=== PATIENT | female | born 1980 | race Caucasian/White ===

== ENCOUNTER 2019-07-20 20:34 | Emergency (ER) | payer OTHER, SELFPAY ==
[2019-07-20 20:47] VITALS: BP 119/78; PULSE 120; RESP 18; TEMP 36.6; O2SAT 97
--- NOTE | 2019-07-20 20:59 | ED.WOUNDLAC ---
HPI - Wound/Laceration General Chief Complaint: Wound/Laceration Stated Complaint: left hand injury Source: patient Mode of arrival: ambulatory Limitations: no limitations History of Present Illness HPI narrative: this is a 39-year-old female that has a well-approximated laceration to the palmar surface of her left hand that occurred earlier today while she was using a knife to separate hamburger. There is some mild swelling and she is complaining of some mild numbness to palmar surface of her left hand currently no bleeding has good range of motion in her fingers. Onset (ago): hour(s) Extremity Location: Left: hand ( Palm well-approximated laceration) Place: home Patient tetanus UTD: No Context: accidental and sharp object use Associated symptoms: loss of feeling/numbness Related Data Home Medications Medication Instructions Recorded Confirmed medroxyprogesterone 150 mg IM [id number] 07/20/19 07/20/19 Allergies Allergy/AdvReac Type Severity Reaction Status Date / Time No Known Allergies Allergy Unverified 07/02/11 08:27 Review of Systems Review of Systems: All systems reviewed & are unremarkable except as noted in HPI and below PMFSH Past Medical History Medical History HLD (hyperlipidemia) Exam Const: General: no acute distress and alert Orientation/consciousness: patient oriented x3 HENMT: Head: normal to inspection Eyes: Conjunctivae: conjunctivae normal Neck: Neck: normal visual inspection Chest: Chest palpation & inspection: normal inspection of the chest Resp: Effort & Inspection: normal respiratory effort Cardio: Rate: regular rate Rhythm: regular rhythm GI: GI Palp: Yes Soft to palpation Skin: Wounds: wounds noted ( 2Cm well-approximated laceration to the left palm) Neuro: General: patient oriented x3 Extrem: General: normal to inspection Psych: Mental Status: mental status grossly normal Course Course Emergency Course: reassured patient that the Dermabond will will hold the laceration, and that her and her numbness and tingling related to inflammation to local nerves and superficial nerves. Vital Signs Vital signs: Vital Signs Temperature 36.6 C 07/20/19 20:47 Pulse Rate 120 H 07/20/19 20:47 Respiratory Rate 18 07/20/19 20:47 Blood Pressure 119/78 07/20/19 20:47 Pulse Oximetry 97 07/20/19 20:47 Temperature 36.6 C 07/20/19 20:47 Pulse Rate 120 H 07/20/19 20:47 Respiratory Rate 18 07/20/19 20:47 Blood Pressure 119/78 07/20/19 20:47 Pulse Oximetry 97 07/20/19 20:47 Procedures Laceration Laceration 1: Date: 07/20/19 Time: 21:03 Site: hand Side (If applicable): left Size (cm): 2 Description: linear Pre-repair: irrigated ====== Skin Level ====== Skin layer closed with: dermabond ====== Subcutaneous Layer ====== ====== Muscle Layer ====== ====== Tendon Layer ====== Critical Care Time Critical Care Time Critical Care Time: No Discharge Plan Discharge Clinical Impression: Laceration Patient Disposition: Home, Self-Care Condition: Stable Instructions: Antibiotic Form, Laceration (ED), Skin Adhesive Care (ED) Additional Instructions: Follow-up with primary care physician if symptoms persist or worsen. Prescriptions: No Action medroxyprogesterone 150 mg/mL suspension 150 mg IM [id number] RF: 0 Follow-up/Referrals: Sivan,YUNI Connors [Primary Care Provider] - Time of Disposition: 21:02
[2019-07-20] MEDS: TETANUS,DIPHTHERIA,AC PERTUSSIS ADULT 0.5 ML (ADACEL) IM (21:00)
== END 2019-07-20 21:11 | disposition home or self-care (01) ==
PROVIDERS: Emergency Provider Emergency Medicine; PCP Physician Assistant
DX: S61.412A Laceration without foreign body of left hand, initial encounter (principal); W26.0XXA Contact with knife, initial encounter
CPT/HCPCS: 12001; 90471; 90715; 99282

== ENCOUNTER 2019-09-13 12:51 | Outpatient (CLI) | payer OTHER, SELFPAY ==
--- NOTE | ~2019-09-13 | US_ITS ---
EXAMINATION: US pelvic complete w TV DATE: 09/13/2019 13:43 INDICATION: Left ovarian cyst TECHNIQUE: Multiple transabdominal and endovaginal sonographic images of the pelvis were obtained. COMPARISON: CT, 12/09/2018 FINDINGS: The uterus measures 8.6 x 2.9 x 2.7 cm. The endometrial complex measures 3 mm. The right ov junior measures 3.4 x 2.1 x 2.5 cm. The left ovary measures 6.6 x 6.0 x 4.2 cm and contains a 6.6 x 5.3 cm simple cyst which is not significantly changed since the comparison CT. There is no free fluid in the pelvis. IMPRESSION: 1. Left ovarian cyst measuring up to 6.6 cm. In a reproductive age female, annual sonographic follow- up is recommended. Reviewed, dictated and finalized at location B. IMPRESSION: 1. Left ovarian cyst measuring up to 6.6 cm. In a reproductive age female, jay gonsales sonographic follow-up is recommended.
== END 2019-09-13 12:52 | disposition home or self-care (01) ==
PROVIDERS: PCP Physician Assistant; Visit Provider Obstetrics & Gynecology
DX: N83.202 Unspecified ovarian cyst, left side (principal)
CPT/HCPCS: 76830; 76856

== ENCOUNTER 2020-04-13 16:57 | Outpatient (CLI) | payer OTHER, SELFPAY ==
[2020-04-13 18:27] LABS: SARS-CoV-2 Ag Negative (Negative)
== END 2020-04-13 16:58 | disposition home or self-care (01) ==
LOC: CHSLAB 17:02
PROVIDERS: PCP Physician Assistant; Visit Provider Physician Assistant
DX: Z20.822 Contact with and (suspected) exposure to COVID-19 (principal)
CPT/HCPCS: 87426; C9803

== ENCOUNTER 2020-11-04 13:43 | Outpatient (CLI) | payer OTHER, SELFPAY ==
[2020-11-04 15:00] LABS: SARS-CoV-2 RNA PCR Negative (Negative)
== END 2020-11-04 13:44 | disposition home or self-care (01) ==
LOC: CHSLAB 13:47
PROVIDERS: PCP Physician Assistant; Visit Provider Physician Assistant
DX: B34.9 Viral infection, unspecified (principal); Z20.822 Contact with and (suspected) exposure to COVID-19
CPT/HCPCS: C9803; U0003; U0005

== ENCOUNTER 2020-11-09 12:48 | Outpatient (CLI) | payer OTHER, SELFPAY ==
[2020-11-09 14:25] LABS: SARS-CoV-2 RNA PCR Negative (Negative)
== END 2020-11-09 12:49 | disposition home or self-care (01) ==
LOC: CHSLAB 12:52
PROVIDERS: PCP Physician Assistant; Visit Provider Family Medicine
DX: B34.9 Viral infection, unspecified (principal); Z20.822 Contact with and (suspected) exposure to COVID-19
CPT/HCPCS: C9803; U0003; U0005

== ENCOUNTER 2021-03-04 13:44 | Outpatient (CLI) | payer OTHER, SELFPAY ==
--- NOTE | ~2021-03-04 | US_ITS ---
EXAMINATION: US pelvic complete w TV EXAM DATE: 03/04/2021 14:36 INDICATION: Left ovarian cyst. TECHNIQUE: Pelvic transabdominal and transvaginal sonogram was performed. There are multiple graysca le and Doppler images available for interpretation. Comparison is made to prior examination from 09/12. FINDINGS: Uterus measures 8.3 x 2.8 x 4.6 cm, with suspicion of fundal fibroid measuring 1.7 cm. End ometrial stripe measures 4 mm, within normal limits. Small amount of cervical canal fluid. There is n o free pelvic fluid. Right adnexa: The ovary measures 2.7 x 2.1 x 1.9 cm and is morphologically normal. Ovarian vascular f low confirmed. Left adnexa: The ovary measures 5.6 x 6.3 x 3.7 cm, most of this volume taken up by an anechoic cysti c lesion measuring 4.8 x 6.1 x 3.4 cm (same lesion previously imaged with prior dimensions provided o n in 2020 at 6.6 x 5.3 x 3.2). Some scattered punctate echogenic foci within the fluid and possible t here is proteinaceous material. Ovarian vascular flow confirmed. IMPRESSION: Chronic left ovarian nonsimple cystic lesion, O-RADS category 2. Consider 2 year follow-u p. Reviewed, dictated and finalized at location B. ENGINEER IMPRESSION: Chronic left ovarian nonsimple cystic lesion, O-RADS category 2. Co nsider 2 year follow-up.
== END 2021-03-04 13:45 | disposition home or self-care (01) ==
PROVIDERS: PCP Physician Assistant; Visit Provider Obstetrics & Gynecology
DX: N83.202 Unspecified ovarian cyst, left side (principal)
CPT/HCPCS: 76830; 76856

== ENCOUNTER 2021-03-25 14:19 | Outpatient (CLI) | payer OTHER, SELFPAY ==
--- NOTE | ~2021-03-25 | MM_ITS ---
EXAMINATION: MM screening beth BI w forrest HISTORY: Baseline screening mammogram TECHNIQUE: Craniocaudal and mediolateral oblique 3-D tomosynthesis images were obtained and synthetic 2-D images were generated. CAD analysis was submitted and interpreted. COMPARISON: None, baseline BREAST PARENCHYMAL COMPOSITION: There are scattered areas of fibroglandular density. FINDINGS: RIGHT BREAST: There is no evidence of suspicious mass, calcification, or architectural distortion to suggest malignancy. LEFT BREAST: There is focal asymmetry in the anterior third of the upper outer quadrant of the breast . IMPRESSION: 1. Left breast focal asymmetry. 2. Additional mammographic views and possible breast ultrasound are recommended. BI-RADS Category 0: Incomplete: Needs additional imaging evaluation. Reviewed, dictated and finalized at location A. OPERER IMPRESSION: 1. Left breast focal asymmetry. 2. Additional mammographic views and possible breast ultrasound are recommended . BI-RADS Category 0: Incomplete: Needs additional imaging evaluation.
== END 2021-03-25 14:20 | disposition home or self-care (01) ==
LOC: ANHIMG 14:22
PROVIDERS: PCP Physician Assistant; Visit Provider Obstetrics & Gynecology Gynecology
DX: Z12.31 Encounter for screening mammogram for malignant neoplasm of breast (principal); R92.8 Other abnormal and inconclusive findings on diagnostic imaging of breast
CPT/HCPCS: 77063; 77067

== ENCOUNTER 2021-04-06 12:18 | Outpatient (CLI) | payer OTHER, SELFPAY ==
--- NOTE | ~2021-04-06 | MMUS_ITS ---
EXAMINATION: MM diagnostic beth LT w forrest, US breast LT limited HISTORY: Left breast focal asymmetry reported on March 25, 2021 screening mammogram TECHNIQUE: Additional 3-D tomosynthesis images of the left breast were performed and synthetic 2-D images were generated. CAD analysis was submitted and interpreted. High resolution targeted upper outer and lower-outer quadrant left breast ultrasound was performed. COMPARISON: 03/25/2019 bilateral screening mammogram FINDINGS: MAMMOGRAPHIC FINDINGS: No reproducible mass or architectural distortion is detected ULTRASOUND: No suspicious mass or shadowing is detected IMPRESSION: 1. No mammographic evidence of malignancy 2. Routine mammographic screening is recommended BI-RADS Category 1: Negative MEASURER GUEVARA
--- NOTE | ~2021-04-06 | MMUS_ITS ---
CORRECTED REPORT Report and charges moved from [id number] to [id number]. 04/14/2021 sef EXAMINATION: MM diagnostic beth LT w forrest, US breast LT limited HISTORY: Left breast focal asymmetry reported on March 25, 2021 screening mammogram TECHNIQUE: Additional 3-D tomosynthesis images of the left breast were performed and synthetic 2-D images were generated. CAD analysis was submitted and interpreted. High resolution targeted upper outer and lower-outer quadrant left breast ultrasound was performed. COMPARISON: 03/25/2019 bilateral screening mammogram FINDINGS: MAMMOGRAPHIC FINDINGS: No reproducible mass or architectural distortion is detected ULTRASOUND: No suspicious mass or shadowing is detected IMPRESSION: 1. No mammographic evidence of malignancy 2. Routine mammographic screening is recommended BI-RADS Category 1: Negative IDE TOOL DIE MAKER GUEVARA
== END 2021-04-06 12:19 | disposition home or self-care (01) ==
LOC: ANHIMG 12:19
PROVIDERS: PCP Physician Assistant; Visit Provider Obstetrics & Gynecology Gynecology
DX: R92.8 Other abnormal and inconclusive findings on diagnostic imaging of breast (principal)
CPT/HCPCS: 76642; 77061; 77065; G0279

== ENCOUNTER 2021-04-14 08:30 | Outpatient (CLI) | payer OTHER, SELFPAY ==
--- NOTE | 2021-04-14 11:00 | NEURO_ITS ---
Impression: # Complains of shooting pain from elbow down the arm in right upper extremity. # Right Carpal Tunnel Syndrome. # No ulnar neuropathy. # Right median compression above the carpal tunnel. # Question Pronator Teres Syndrome. Nerve Conduction Studies Anti Sensory Summary Table Stim Site NR Peak (ms) P-T Amp (?V) Site1 Site2 Delta-P (ms) Dist (cm) Johnathon (m/s) Right Median Anti Sensory (2-3nd Digit) Wrist 3.9 29.2 Wrist 2-3nd Digit 3.9 14.0 36 Wrist 4.0 7.9 Wrist 2-3nd Digit 3.9 14.0 36 Right Radial Anti Sensory (Base 1st Digit) Wrist 2.1 12.3 Wrist Base 1st Digit 2.1 0.0 Right Ulnar Anti Sensory (5th Digit) Wrist 2.4 75.7 Wrist 5th Digit 2.4 14.0 58 Motor Summary Table Stim Site NR Onset (ms) O-P Amp (mV) Site1 Site2 Delta-0 (ms) Dist (cm) Johnathon (m/s) Right Median Motor (Abd Poll Brev) Wrist 3.5 3.2 Elbow Wrist 7.2 27.0 38 Elbow 10.7 1.4 Right Ulnar Motor (Abd Dig Minimi) Wrist 2.7 3.6 A Elbow Wrist 5.0 30.0 60 A Elbow 7.7 2.7 F Wave Studies NR F-Lat (ms) L-R F-Lat (ms) Right Median (Mrkrs) (Abd Poll Brev) 30.41 Right Ulnar (Mrkrs) (Abd Dig Min) 27.78 EMG Side Muscle Nerve Root Ins Act Fibs Amp Dur Recrt Comment Right 1stDorInt Ulnar C8-T1 Nml Nml Nml Nml Nml Right Ext Indicis Radial (Post Int) C7-8 Nml Nml Nml Nml Nml Right Ext Digitorum Radial (Post Int) C7-8 Nml Nml Nml Nml Nml Right BrachioRad Radial C5-6 Nml Nml Nml Nml Nml Right PronatorTeres Median C6-7 Nml Nml Nml Nml Nml Right Abd Poll Brev Median C8-T1 Nml Nml Nml Nml Nml Right ABD Dig Min Ulnar C8-T1 Nml Nml Nml Nml Nml Right Abd Poll Long Radial (Post Int) C7-8 Nml Nml Nml Nml Nml MTDD
== END 2021-04-14 08:31 | disposition home or self-care (01) ==
PROVIDERS: PCP Physician Assistant; Visit Provider Physician Assistant
DX: G56.01 Carpal tunnel syndrome, right upper limb (principal)
CPT/HCPCS: 95886; 95909

== ENCOUNTER 2022-06-10 14:36 | Outpatient (CLI) | payer OTHER, SELFPAY ==
--- NOTE | ~2022-06-10 | MM_ITS ---
EXAMINATION: MM screening beth BI w forrset HISTORY: Screening mammogram TECHNIQUE: Craniocaudal and mediolateral oblique 3-D tomosynthesis images were obtained and synthetic 2-D images were generated. CAD analysis was submitted and interpreted. COMPARISON: No prior mammogram is available for comparison at this institution. BREAST PARENCHYMAL COMPOSITION: There are scattered areas of fibroglandular density. FINDINGS: There is no evidence of suspicious mass, calcification, or architectural distortion to sugg est malignancy in either breast. There has been no suspicious interval change. IMPRESSION: 1. No mammographic evidence of malignancy. 2. Recommend routine screening mammography in one year. BI-RADS Category 1: Negative Reviewed, dictated and finalized at location A.
--- NOTE | ~2022-06-10 | DEXA_ITS ---
Bone Density Report Name: TALHA MERRILL Age: 41 Sex: Female Ethnicity: White Date of : 1980 Indication: height loss; Referring Provider: LOTTIE PABON Study: Bone densitometry was performed. Exam Date: June 10, 2022 Accession number: [id number] Bone Density: Region BMD T-score Z-score Classification AP Spine(L1-L4) 1.049 0.0 0.3 Normal Femoral Neck (Left) 0.797 -0.5 -0.1 Normal Total Hip (Left) 0.959 0.1 0.3 Normal Femoral Neck (Right) 0.888 0.4 0.7 Normal Total Hip (Right) 0.970 0.2 0.4 Normal Total Hip Mean 0.964 0.2 0.4 Normal World Health Organization criteria for BMD impression classify patients as: Normal (T-score at or above -1.0), Osteopenia (T-score between -1.0 and -2.5), or Osteoporosis (T-score at or below -2.5). 10-year Fracture Risk: FRAX not reported because: All T-scores for Spine Total, Hip Total, Femoral Neck at or above -1.0 Clinical Information Provided by Patient: Smokes Patient maximum height was 64 Drinks caffeinated beverages Onset of menses at age 12 Number of children 2 Missed period for more than 6 months in a row Impression: The patient has normal bone mass. The patient has risk factors, including: smoking. Discussion: BONE DENSITY IS ABOVE THE MINIMUM DESIRABLE LEVEL AT ALL SKELETAL SITES TESTED. This patient?s bone mineral density is above the minimum desirable level (T-score -1.0 or better) at all sites measured. The patient should follow a healthful lifestyle (good nutrition with adequate calcium and vitamin D, and appropriate weight-bearing exercise). Follow-Up: Consider repeating this study in 5 years or sooner if there is some new clinical indication. Reported by: [facility] on 06/10/2022 3:13:00 PM. Reviewed, dictated and finalized at location [place] [facility]
== END 2022-06-10 14:37 | disposition home or self-care (01) ==
PROVIDERS: PCP Physician Assistant; Visit Provider Obstetrics & Gynecology Gynecology
DX: Z12.31 Encounter for screening mammogram for malignant neoplasm of breast (principal); Z13.820 Encounter for screening for osteoporosis
CPT/HCPCS: 77063; 77067; 77080

== ENCOUNTER 2022-08-03 18:51 | Emergency (ER) | payer OTHER, SELFPAY ==
[2022-08-03] VITALS (13 sets, daily range): BP systolic 128–138; BP diastolic 76–89; PULSE 90–102; RESP 12–21; TEMP 36.6; O2SAT 95–100
--- NOTE | ~2022-08-03 | XR_ITS ---
EXAMINATION: XR chest 2V Exam Date/Time: 08/03/2022 19:00 CDT HISTORY: cough Comparison: None. RESULT: Lines, tubes, and devices: None. Lungs and pleura: Mild reticulonodular opacities and cuffing. Cardiomediastinal silhouette: Stable. Other: No acute osseous or upper abdominal finding. IMPRESSION: Pulmonary opacities may represent bronchiolitis, as can be seen with atypical infection, asthma, aspi ration, and small airways disease. Reviewed, dictated and finalized at location K. IMPRESSION: Pulmonary opacities may represent bronchiolitis, as can be seen with atypical i nfection, asthma, aspiration, and small airways disease.
--- NOTE | 2022-08-03 18:52 | ECG_ITS ---
Measurements Intervals [place] Rate: 87 P: 51 GA: 142 QRS: 23 QRSD: 91 T: 31 QT: 341 QTc: 412 Interpretive Statements SINUS RHYTHM NO PREVIOUS ECG AVAILABLE FOR COMPARISON Electronically Signed On 08-03-2022 20:03:35 CDT by Wendy Bauer M.D.
--- NOTE | 2022-08-03 18:54 | ED.CHESTPAIN ---
HPI - Chest Pain General Chief Complaint: Shortness of Breath/Dyspnea Stated Complaint: SOB Time Seen by Provider: 08/03/22 18:52 History of Present Illness HPI narrative: Pt did a lot of yard work 5 days ago and started to develop nasal congestion and cough about 4 days ago. Pt developed tightness in upper chest this morning which has stayed constantly since this morning and seems to be more tight when she coughs. Pt has felt warm but has not had a measured fever. Pt has not had episodes like this in past. Related Data Home Medications Medication Instructions Recorded Confirmed medroxyprogesterone 150 mg/mL 150 mg IM [id number] 07/20/19 08/03/22 intramuscular suspension simvastatin 40 mg tablet 40 mg PO DAILY 08/03/22 08/03/22 Allergies Allergy/AdvReac Type Severity Reaction Status Date / Time No Known Allergies Allergy Verified 08/03/22 19:01 Review of Systems Review of Systems: All systems reviewed & are unremarkable except as noted in HPI and below PMFSH Past Medical History Medical History (Updated 07/21/19 @ 00:00 by Estefany Cuellar) HLD (hyperlipidemia) Exam Const: General: healthy appearing Nutritional Appearance: well nourished Orientation/consciousness: patient oriented x3 Limitations: no limitations Neck: Neck: normal visual inspection Chest: Chest palpation & inspection: normal inspection of the chest Resp: Effort & Inspection: normal respiratory effort Auscultation: clear to auscultation bilaterally Cardio: Rate: regular rate Rhythm: regular rhythm GI: GI Palp: Yes Soft to palpation Auscultation: normal bowel sounds Skin: General skin exam: normal color Rashes: no rashes Neuro: General: patient oriented x3, moves all extremities, no focal motor deficits and CN's II-XI intact bilaterally Cranial nerves: Yes Nystagmus not present Speech: normal speech Extrem: General: normal to inspection and no clubbing, cyanosis or edema Psych: Mental Status: mental status grossly normal Affect: normal affect Attitude: cooperative Course Course Emergency Course: H 0, E 0, A 0, R 1,T Vital Signs Vital signs: Vital Signs Temperature 98 F 08/03/22 18:56 Pulse Rate 96 08/03/22 18:56 Respiratory Rate 12 08/03/22 18:56 Blood Pressure 131/85 08/03/22 18:56 Pulse Oximetry 97 08/03/22 18:56 Oxygen Delivery Room Air 08/03/22 18:56 Temperature 98 F 08/03/22 18:56 Pulse Rate 96 08/03/22 18:56 Respiratory Rate 12 08/03/22 18:56 Blood Pressure 131/85 08/03/22 18:56 Pulse Oximetry 97 08/03/22 18:56 Oxygen Delivery Room Air 08/03/22 18:56 MDM - Chest Pain Differential Diagnosis Differential diagnosis: Likely pneumothorax, unstable angina pectoris, atypical chest pain, st elevation myocardial infarction, costochondritis, chest pain and other (bronchitis, pneumonia, allergies, viral uri among others) ECG Data EKG #1: Interpretation: NSR rate [address] or t wave changes normal ekg Discharge Plan Discharge Prescriptions: No Action medroxyprogesterone 150 mg/mL suspension 150 mg IM [id number] simvastatin 40 mg tablet 40 mg PO DAILY Follow-up/Referrals: Sivan,YUNI Cononrs [Primary Care Provider] -
[2022-08-03 19:07] LABS: Basophils Absolute Auto 0.04 K/mm3 (0.00-0.10); Basophils Percent Auto 0.4 % (0.0-1.0); Eosinophils Percent Auto 0.9 % (1.0-6.0); Hematocrit 44.1 % (35.0-49.0); Hemoglobin 14.9 g/dL (12.0-15.0); Immature Granulocyte Absolute 0.04 K/mm3 (0.00-0.00); Immature Granulocyte Percent A 0.4 % (0.0-0.0); Lymphocytes Absolute Auto 2.28 K/mm3 (1.10-4.50); Lymphocytes Percent Auto 21.6 % (18.0-42.0); Mean Corpuscular HGB Conc 33.8 g/dL (32.0-36.0); Mean Corpuscular Hemoglobin 32.1 pg (27.0-31.0); Mean Platelet Volume 9.4 fl (9.2-11.8); Monocytes Absolute Auto 0.97 K/mm3 (0.10-0.90); Monocytes Percent Auto 9.2 % (2.0-11.0); Neutrophils Absolute Auto 7.1 K/mm3 (1.7-7.2); Neutrophils Percent Auto 67.5 % (50.0-70.0); Platelet Count Result 301 K/mm3 (150-420); Red Blood Count 4.64 M/mm3 (4.20-5.40); Red Cell Distribution Width 12.9 % (11.6-14.4); White Blood Count 10.6 K/mm3 (4.8-10.8)
[2022-08-03] MEDS: IPRATROPIUM 0.5 MG/ALBUTEROL SULFATE 2.5 MG AMPUL.NEB 3 ML INHALATION (19:13)
[2022-08-03 19:21] LABS: Partial Thromboplastin Time 26.8 SEC (23.90-30.70); Prothrombin Time 10.7 Seconds (9.50-12.10)
[2022-08-03] MEDS: ASPIRIN 81 MG CHEWABLE TABLET 324 MG PO (19:27)
[2022-08-03] MEDS: ONDANSETRON INJ 4 MG/2 ML VIAL IV PUSH (19:28)
[2022-08-03 19:29] LABS: Alanine Aminotransferase 23 U/L (14-59); Albumin Level 3.5 g/dL (3.4-5.0); Alkaline Phosphatase 68 U/L (46-116); Anion Gap 10 mmol/L (8-16); Aspartate Amino Transferase 16 U/L (15-37); Bilirubin,Total 0.3 mg/dL (0.00-1.00); Blood Urea Nitrogen 15 mg/dL (7-18); Calcium 8.4 mg/dL (8.5-10.1); Carbon Dioxide 25 mmol/L (21-32); Chloride 104 mmol/L (98-108); Estimated CRCL calculation 95 ml/min; Estimated Glomerular Filt Rate > 60; Glucose 94 mg/dL (70-99); NT Pro B Type Natriuretic Pept 206 pg/mL (0-125); Osmolality Calculated 288 mOsm/kg (285-295); Potassium 3.9 mmol/L (3.5-5.1); Sodium 139 mmol/L (136-145); Total Protein 6.9 g/dL (6.4-8.2)
[2022-08-03] MEDS: MORPHINE SULFATE (*CRX) 4 MG/ML INJ IV PUSH (19:30)
== END 2022-08-03 20:13 | disposition home or self-care (01) ==
LOC: CHSED 19:43
PROVIDERS: Emergency Provider Emergency Medicine; PCP Physician Assistant
DX: J20.9 Acute bronchitis, unspecified (principal); E78.5 Hyperlipidemia, unspecified
CPT/HCPCS: 36415; 71046; 80053; 83880; 84484; 85025; 85610; 85730; 93005; 94640; 96374; 96375; 99284; A9270; J2270; J2405

== ENCOUNTER 2023-11-08 15:56 | Outpatient (CLI) | payer OTHER, SELFPAY ==
--- NOTE | ~2023-11-08 | MM_ITS ---
EXAMINATION: MM screening beth BI w forrest HISTORY: Screening TECHNIQUE: Craniocaudal and mediolateral oblique 3-D tomosynthesis images were obtained and synthetic 2-D images were generated. CAD analysis was submitted and interpreted. COMPARISON: Comparison to multiple prior studies sequentially, with oldest reviewed study dated 03/25. BREAST PARENCHYMAL COMPOSITION: Not dense: There are scattered areas of fibroglandular density. FINDINGS: There is no evidence of suspicious mass, calcification, or architectural distortion to sugg est malignancy in either breast. There has been no suspicious interval change. IMPRESSION: 1. No mammographic evidence of malignancy. 2. Recommend routine screening mammography in one year. BI-RADS Category 1: Negative Reviewed, dictated and finalized at location B.
== END 2023-11-08 15:57 | disposition home or self-care (01) ==
LOC: ANHIMG 15:58
PROVIDERS: PCP Physician Assistant; Visit Provider Nurse Practitioner
DX: Z12.31 Encounter for screening mammogram for malignant neoplasm of breast (principal)
CPT/HCPCS: 77063; 77067

== ENCOUNTER 2024-06-19 11:00 | Outpatient (CLI) | payer OTHER, MEDICAID, SELFPAY ==
--- NOTE | ~2024-06-19 | US_ITS ---
Pelvic ultrasound. Clinical History: Left ovarian cyst Technique: Realtime transabdominal and transvaginal scanning of the pelvis was performed. Color flow Doppler and Doppler spectral analysis were performed. Findings: The uterus is anteverted. The endometrial stripe has a thickness of 6 mm. No focal mass is identified. The right ovary is not visualized. No significant right ovarian or adnexal mass is seen. The left ovary measures 5.7 x 8.0 x 5.2 cm. Simple left ovarian cyst measures 7.0 x 4.7 cm. There is no evidence of free fluid in the cul de sac. Impression: 7.0 cm simple left ovarian cyst. Reviewed, dictated and finalized at location M. Impression: 7.0 cm simple left ovarian cyst.
== END 2024-06-19 11:01 | disposition home or self-care (01) ==
LOC: MICIMG 11:01
PROVIDERS: PCP Physician Assistant; Visit Provider Nurse Practitioner
DX: N83.202 Unspecified ovarian cyst, left side (principal)
CPT/HCPCS: 76830

== ENCOUNTER 2024-07-19 16:22 | Outpatient (CLI) | payer OTHER, MEDICAID, SELFPAY ==
--- OUTSIDE RECORDS SUMMARY | 2024-07-19 16:27 | XMS_ITS | Clinical Summary ---
Author Organization [facility] Address [address] [place] [id number] Phone Care Team Providers Care Gasket Maker Name Role Phone Unavailable Primary Care Provider Unavailabl e Allergies No known active allergies Medications VITS W-CA,FE,FA,<1MG , ( VITAMIN ORAL) Take 1 Tab by mouth daily. 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 Gender Identity Not on file Sexual Orientation Not on file Occupation Industry Job Start Date Job End Date Not on file Not on file Not on file Not on file Plan of Treatment Health Maintenance Due Date Last Done Comments DTAP/TDAP/TD VACCINES (1 - Tdap) 06/25/1999 HEPATITIS B VACCINES (1 of 3 - 19+ 3-dose series) 06/25/1999 HPV/Cotest (21-29) 2001 CERVICAL CANCER SCREENING 2010 HPV/Cotest (30-65) 2010 PAP SMEAR 2010 BREAST CANCER SCREENING 2020 INFLUENZA VACCINE (#1) 2023 RSV VACCINE (60+ or ) (1 - 1-dose 75+ series) 06/25/2055 HPV VACCINES Aged Out No longer eligi ble based on patient's age to complete this topic Insurance [id number] [place] [id number] [facility] [id number]
--- OUTSIDE RECORDS SUMMARY | 2024-07-19 16:28 | XMS_ITS | Continuity of Care Document ---
Author Organization [facility] Address [address] [place] [address] Phone Care Team Providers Care Application Support Intern Name Role Phone Unavailable Unavailable Unavailable Advance Directives Directive Yes / No Effective Date File Name No Information Encounters Encounter Description Practice Location Reason(s) For Visit Diagnoses Date Provider Providers Copied on Encounter [facility], [address] [facility], [place], [place], [id number], tel:[phone] [facility] No Information No Information Referring Provider: KULWINDER Thomas, [address], [place], [address]. tel:[phone] Family History Family Member Type Diagnosis Age At Onset No Information Payers Payer name Insurance type Covered libertarian ID Authoriza tion(s) [facility] [id number] CI [id number] Social History Type Description Quantity Date Captured Comments Sex Female Smoking Status No Information Chief Complaint And Reason For Visit No Information History Of Present Illness Encounter Date Complaint History Of Prese nt Illness No Information Instructions Date Instruction Additional Infor mation No Information Assessments Type Assessment Date No Information
--- OUTSIDE RECORDS SUMMARY | 2024-07-19 16:28 | XMS_ITS | Continuity of Care Document ---
Author Organization [facility] Address [address] [place] [address] Care Team Providers Care Respiratory Therapist Name Role Phone WHITNEY FINNEGAN Primary Care Provider Assessment No assessment recorded. Plan of Treatment Reminders Order Date Submit Date Provider Last Modified By Organization Details Last Modified Time Details Appointments ANY 15 2024 03:45P M Whitney Finnegan PA-C Not available Not available Not available Lab CMP, serum or plasma 2024 025 [facility], [address] [place] [address], [address], 07/19/2024 17:00:19 CBC 2024 025 [facility], [address] [place] [address] 2, [place], [address], 07/19/2024 17:00:19 amylase + lipase, serum 2024 025 [facility], [address] [place] [address] 2, [place], [address], 07/19/2024 17:00:19 Referral None recorded. Procedures None recorded. Surgeries None recorded. Imaging US, abdomen, complete [address] [facility], [address] [place], [address], 07/19/2024 17:00:59 Medication Orders None recorded. Patient TargetsNo targets recorded. Patient Instructions Encounter Date Encounter Id Patient Instructions Last Modified By Organization Details Last Modified Time 07/19/2024 [id number] A healthy lifestyle: care instructions [email or web address] Not available 07/19/2024 17:00:48 ultrasound, abdominal: patient instructions [email or web address] Not available 07/19/2024 17:00:17 Reason for Referral None Reported. Results Created Date Observation Date Name Description Value Unit Range Abnormal Flag Note LastModifiedBy Organization Detail LastModifiedTime 06/20/1906/19/2024 US, pelvi s No observ ation record ed. [email or web address] [address], [place], [address], 06/19/2024 14:26:27 Result Notes None recorded. Problems Name Problem SNOMED Code Status Onset Date Resolution Date Notes Provider Name and Address Organization Details Recorded Time Cyst of ovary 70161804 Active 2018 MARILY [place], [place] - [place] 9 11:54:10 Diverticulitis 191861879 Active 2018 MARILY [place], [place] 9 11:54:16 History of hypertension 796114157 Active MARILY [place], [place] - [facility] 6 15:37:22 Folliculitis 21594766 Active MARILY [place], [place] - [facility] 6 15:37:22 Upper respiratory infection 37950987 Active Whitney Finnegan PA-C Attn: Santana g,[address] [facility], [place], [address], [facility] - [facility] 6 15:48:58 Problem Notes None recorded. Procedures Surgical History Date Name Laterality Status Provider Name and Address Organization Details Recorded Time 0 Date of Last Pap Smear completed Fatimah Delvalle [place] 04/13/2020 17:00:21 9 partial resection of colon completed Charlotte Lu [place] 10/11/2021 11:52:44 Caesarean Section completed Aida Schumacher [place] 04/02/2015 13:51:17 Imaging Results None recorded. Procedure Notes None recorded. Medical Equipment None Reported. Allergies No known drug allergies Medications Name Sig Start Date Stop Date Status Note LastModified by Organization Details LastModified Time cyclobenza alberto 10 mg tablet 10/14 completed Not Available Not Available Not Available amoxicilli n 500 mg capsule TAKE 1 CAPSULE BY MOUTH 3 TIMES A DAY FOR 10 DAYS 02/25 completed Not Available Not Available Not Available buspirone 5 mg tablet Take 1 tablet every day by oral route for 30 days. 02/25 completed Not Available Not Available Not Available ibuprofen 800 mg tablet Take 1 tablet 3 times a day by oral route as needed for 30 days. 02/25 completed Not Available Not Available Not Available fluconazol e 150 mg tablet 10/14 completed Not Available Not Available Not Available benzonatat e 200 mg capsule Take 1 capsule 3 times a day by oral route as needed for 10 days. 06/04 completed Not Available Not Available Not Available hydrocodon e 5 mg-acetami nophen 325 mg tablet 02/25 completed Not Available Not Available Not Available metronidaz ole 0.75 % (37.5 mg/5 gram) vaginal gel 10/14 completed Not Available Not Available Not Available ondansetro n HCl 4 mg tablet 02/25 completed Not Available Not Available Not Available metronidaz ole 500 mg tablet 02/19 completed Not Available Not Available Not Available ciprofloxa camron 500 mg tablet Take 1 tablet every 12 hours by oral route for 10 days. 02/19 completed Not Available Not Available Not Available sulfametho xazole 800 mg-trimeth oprim 160 mg tablet Take 1 tablet every 12 hours by oral route for 10 days. 10/10 completed Not Available Not Available Not Available tramadol 50 mg tablet 02/25 completed Not Available Not Available Not Available simvastati n 40 mg tablet TAKE 1 TABLET BY MOUTH EVERY DAY active Not Available Not Available No t Available ketorolac 10 mg tablet 06/27 completed Not Available Not Available Not Available amoxicilli n 875 mg tablet TAKE 1 TABLET BY MOUTH EVERY 12 HOURS FOR 10 DAYS 06/04 completed Not Available Not Available Not Available cephalexin 500 mg capsule 10/10 completed Not Available Not Available Not Available simvastati n 20 mg tablet TAKE 1 TABLET BY MOUTH EVERY DAY 03/16 completed not taking Not Available Not Available Not Available docusate sodium 100 mg capsule 02/25 completed Not Available Not Available Not Available gabapentin 300 mg capsule TAKE 1 CAPSULE BY MOUTH THREE TIMES A DAY 10/11 completed not taking Not Available Not Available Not Available codeine 10 mg-guaifen esin 100 mg/5 mL oral liquid Take 10 mL every 4 hours by oral route as needed for 10 days. 07/12 completed Nauseat ed; sick Not Available Not Available Not Available methylpred nisolone 4 mg tablets in a dose pack Take 1 dose pk by oral route as directed . 06/04 completed Not Available Not Available Not Available ondansetro n 4 mg disintegra ting tablet 02/25 completed Not Available Not Available Not Available medroxypro gesterone 150 mg/mL intramuscu lar suspension INJECT 1ML INTO THE MUSCLE EVERY 12 WEEKS active Not Available Not Available No t Available naproxen 500 mg tablet TAKE 1 TABLET BY MOUTH TWICE A DAY active Not Available Not Available No t Available amoxicilli n 875 mg-potassi um clavulanat e 125 mg tablet 02/19 completed Not Available Not Available Not Available azithromyc in 500 mg tablet Take 1 tablet every day by oral route for 3 days. 06/04 completed Not Available Not Available Not Available medroxypro gesterone 150 mg/mL intramuscu lar syringe INJECT INTRAMUS CULARLY EVERY 12 WEEKS 06/04 completed Not Available Not Available Not Available Falmina (28) 0.1 mg-20 mcg tablet 10/10 completed Not Available Not Available Not Available Vitals Date Recorded Body height Body mass index (BMI) Body weight Oxygen saturation Oxygen saturation in Arterial blood by Pulse oximetry Systolic blood pressure Diastolic blood pressure Provider Name and Address Organization Details Last Updated DateTime 5 162.56 cm 41.4 kg/m2 441011. 76 g 96 % 96 % 126 mm[Hg] 82 mm[Hg] Belinda Gillette [place] - [facility] 5 16:51:48 Social History Question Answer Notes LastModified by Organizat ion Details LastModified Time Tobacco Smoking Status Current Every Day Smoker Aida Schumacher MA null, [place] 04/02/2015 13:51:16 Do You Have An Advance Directive? No Information n ot available 02/25/2021 Are You Blind Or Do You Have Difficulty Seeing? No Information n ot available 02/25/2021 What Is Your Level Of Caffeine Consumption? Moderate Information not available 04/13/2020 In The 14 Days Before Symptom Onset, Have You Had Close Contact With A Laboratory-confirm ed COVID-19 While That Case Was Ill? No Information n ot available 04/13/2020 In The 14 Days Before Symptom Onset, Have You Had Close Contact With A Person Who Is Under Investigation For COVID-19 While That Person Was Ill? No Information not available 04/13/2020 Have You Been To An Area Known To Be High Risk For COVID-19? No Information not available 04/13/2020 Are You Deaf Or Do You Have Serious Difficulty Hearing? No Information not available 02/25/2021 What Type Of Diet Are You Following? REGULAR Information n ot available 04/13/2020 Are There Any Guns Present In Your Home? Yes Information not available 02/25/2021 What Was The Date Of Your Most Recent Tobacco Screening? 07/19/2024 Information not available 07/19/2024 How Many Children Do You Have? 2 Information not available 02/25/2021 Do You Use Protection During Sex? No Information not available 02/25/2021 What Is Your Relationship Status? Information not available 04/13/2020 Do You Use Your Seat Belt Or Car Seat Routinely? Yes Information not available 02/25/2021 Are You Sexually Active? Yes Information not available 02/25/2021 Do You Have Smoke And Carbon Monoxide Detectors In Your Home? Yes Information not available 02/25/2021 Are You Passively Exposed To Smoke? Yes Information no t available 02/25/2021 How Much Tobacco Do You Smoke? 0.5 PPD [email or web address] Information not available 04/02/2015 Do You Use Sunscreen Routinely? Yes Information not available 02/25/2021 Has Tobacco Cessation Counseling Been Provided? Yes [email or web address] Information not available 06/27/2018 On What Date Was Tobacco Cessation Counseling Provided? 07/19/2024 Information not available 07/19/2024 How Many Years Have You Smoked Tobacco? 19 [email or web address] Information not available 03/21/2018 Sex: Female Functional Status Question Answer Note LastModified by Organizat ion Details LastModified Time Do you use any illicit or recreational drugs? Yes Information not available 02/25/2021 Do you or have you ever used any other forms of tobacco or nicotine? No Information not available 02/25/2021 What is your level of alcohol consumption? Occasional Information not available 10/11/2021 Are you currently employed? Yes Information not available 04/13/2020 Are you able to care for yourself? 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 None Information not available 02/25/2021 Mental Status Question Answer Note LastModified by Organization D etails LastModified Time Do you feel stressed (tense, restless, nervous, or anxious, or unable to sleep at night)? [id number] Information not available 10/11/2021 Family History Relationship Description Onset Age of this Age Resolved Age Notes LastModified by Organization Details LastModified Time Mother History of hypertension [email or web address] Not available 0 10/15/2015 15:37:23 Medical History Condition Response Coronary Artery Disease N Other N Atrial Fibrillation N High Blood Pressure N Thyroid Problems N Kidney or Bladder Problems N Depression N COPD N Blood Clots N GI Problems N Skin Problems N Eating Disorder N Anemia N Heart Attack (SD) N Diabetes N Anxiety Disorder N Muscle, Joint, or Bone Problems N Seizures/Epilepsy N Acid Reflux (GERD) N Cancer N Stroke N Allergies N Asthma N ADHD N Substance Abuse N High Cholesterol Y Hepatitis N Liver Disease N Schizophrenia N Headaches N Osteoporosis N Heart Failure N Gynecological History Statement/Question Response Date of Last Pap Smear 11/14/2019 Date of LMP Obstetrics History GPAL:G 0 P 0 0 0 0 Immunizations Vaccine Type Date Status Note Provider Nam e and Address Organization Details Recorded Time Hep B, adult 6 completed Not Available [facility] 03/[facility]2019 02:30:47 Hep B, adult 6 completed Not [facility] 03/02/2019 02:30:47 influenza, unspecified formulation 9 completed MARILY [place], [place] 01/01/2019 14:06:27 Hep B, adult 6 completed Not Available [facility] 03/02/2019 02:30:47 Tdap 0 completed Not Available [facility] 07/19/2024 16:44:32 Influenza, split virus, quadrivalent, preservative 8 completed Not Available [facility] 03/02/2019 02:49:14 Past Encounters Encounter ID Performer Location Encounter Start Date Encounter Closed Date Diagnosis/Indication Diagnosis SNOMED-CT Code Diagnosis ICD10 Code Diagnosis Note [id number] Naseem Barlow [facility] [address] [place] [address] 07/19/2024 16:43:50 07/19/2024 17:01:44 Right upper quadrant pain 442679976 R10.11 Obese class III 53058146 5 E66.813 Health Concerns Section Related Observation LastModified by Organization Detai ls LastModified Time None Recorded Concern Status LastModified by Organization Details LastModified Time None Recorded Payers Encounter Date Sequence Insurance Name Policy Number Policy Lawler Covered Member ID Lawler Member ID Guarantor Name 07/19/2024 1 [facility] [employer]LE[employer]ST[employer] - OPEN ACCESS III (PPO) [id number] Job Do [id number] Job Do Notes Date Note Type Note Provider Name and Address Organization Details Recorded Time 07/19/2024 text/html hx of diverticulitis...n ow having pain started in back now wrapping around to rt side..may be some correlation with food.. Whitney Finnegan PA-C Attn: [employer] [place], [address], [facility] 07/19/2024 17:01:41 OBGyn Episode No OBEpisode recorded.
--- OUTSIDE RECORDS SUMMARY | 2024-07-19 16:28 | XMS_ITS | Data Portability ---
Author Organization [facility] Address [address] [place] [address] Care Team Providers Care Photographic Technician Name Role Phone WHITNEY FINNEGAN Primary Care Provider [phone] Assessment No assessment recorded. Plan of Treatment Reminders Order Date Submit Date Provider Last Modified By Organization Details Last Modified Time Details Appointments ANY 15 2024 03:45P M Whitney Finnegan PA-C Not available Not available Not available Lab CMP, serum or plasma 2024 025 J[facility], [address] [facility], [facility], [place], [address], 07/19/2024 17:00:19 CBC 2024 025 J[facility]DEN [facility], [address] [facility], [facility], [place], [address], 07/19/2024 17:00:19 amylase + lipase, serum 2024 025 JAYDEN [facility], [address] [facility], [facility], [place], [address], 07/19/2024 17:00:19 rapid SARS CoV 2 Ag, QL IA, respirat ory specimen 2021 022 JAYDEN In-Office Order, Internal Use Only DO Not Attach Compendium DO Not Attach Compendium, Do Not Delete/merge, [id number] 01/25/2022 12:27:53 lipid panel, serum 2021 022 [email or web address] [facility], [address] [place], [place] [address]jam[address], [address], [place], [address], 02/26/2021 09:42:04 CMP, serum or plasma 2021 [email or web address] [facility], [address], [address], [place], [address], 02/26/2021 09:42:05 CBC 2021 JAYDEN [facility], [address], [address], [place], [address], 03/16/2021 11:09:28 TSH + free T4, serum 2021 [email or web address] [facility], [address], [address], [place], [address], 02/26/2021 09:42:07 HbA1c (hemoglo bin A1c), blood 2021 022 [facility], [address], [address], [place], [address], 02/26/2021 09:42:08 Referral physical therapis t referral 2024 025 [facility], [address] [place] [address], [place], [address], 07/02/2024 12:44:53 dermatol ogist referral 2021 022 [email or web address] Not available 10/28/2021 11:29:11 general surgeon referral 2021 bimal Douglass MD, [address] [facility] , [facility] [address], [place], [address], 06/17/2021 12:31:09 Procedures nerve conducti on study/EM G, upper extremit y (PROC) - right hand 2021 [facility], [address], [place], [address], 04/15/2021 15:43:29 Surgeries None recorded . Imaging US, abdomen, complete 2024 025 [facility], [address] [place], [address], 07/19/2024 17:00:59 Medication Orders naproxen 500 mg tablet 2024 025 [facility]/Pharmacy #[id number], [address] [place], [address], 06/04/2024 14:38:33 Medrol (Al) 4 mg tablets in a dose pack 2021 [email or web address] [facility]/Pharmacy #[id number], [address] [place], [address], 06/04/2024 14:21:21 Patient TargetsNo targets recorded. Patient Instructions Encounter Date Encounter Id Patient Instructions Last Modified By Organization Details Last Modified Time 02/25/2021 [id number] carpal tunnel syndrome: care instructions anney Not available 02/25/2021 14:41:44 carpal tunnel syndrome: exercises anney Not available 02/25/2021 14:41:44 10/11/2021 [id number] body mass index: care instructions anney Not available 10/11/2021 12:15:41 learning about healthy weight anney Not available 10/11/2021 12:15:41 06/04/2024 [id number] body mass index: care instructions anney Not available 06/04/2024 14:38:30 learning about healthy weight anney Not available 06/04/2024 14:38:30 07/19/2024 [id number] A healthy lifestyle: care instructions anney Not available 07/19/2024 17:00:48 ultrasound, abdominal: patient instructions anney Not available 07/19/2024 17:00:17 Reason for Referral General Surgeon Referral for Diverticulitis of colon Referring Physician: Whitney Finnegan, Family Medicine, Encounter Date: 02/25/2021 [employer] Referral for D ysplastic nevus of skin Referring Physician: Whitney Finnegan [facility], Encounter Date: 10/11/2021 Physical Therapist Referral for Right inguinal pain Referring Physician: Whitney Finnegan [facility], Encounter Date: 06/04/2024 Results Created Date Observation Date Name Description Value Unit Range Abnormal Flag Note LastModifiedBy Organization Detail LastModifiedTime 01/26/20 22 01/25/2022 rapid SARS CoV 2 Ag, QL IA, respi rator y speci men rapid SARS CoV 2 Ag, QL IA, respiratory specimen positi ve Not Available In-Office Order Internal Use Only DO Not Attach Compendium DO Not Attach Compendium, Do Not Delete/merge, [id number] 01/25/2022 12:17:21 03/05/19 22 03/04/2021 US, pelvi s, compl ete No observ ation record ed. [address] [facility], [place], [address], 03/05/2021 13:35:00 03/25/19 22 03/25/2021 MAMMO , scree concepción, digit al, bilat eral No observ ation record ed. [address] [facility], [place], [address], 03/26/2021 09:31:06 04/07/19 22 04/06/2021 US, maria isabel david No observ ation record ed. [address], [place], [address], 04/07/2021 17:01:46 04/07/19 22 04/06/2021 MAMMO , scree concepción, digit al, bilat eral No observ ation record ed. [address], [place], [address], 04/07/2021 17:02:05 04/07/19 22 04/06/2021 MAMMO , diagn ostic , digit al, bilat eral No observ ation record ed. [address], [place], [address], 04/07/2021 17:02:32 04/16/19 22 04/14/2021 nerve condu ction study /EMG, upper extre mity (PROC ) No observ ation record ed. [address], [place], [address], 04/15/2021 15:43:29 04/17/19 22 04/06/2021 MAMMO , scree concepción, digit al, bilat eral No observ ation record ed. [address], [place], [address], 04/16/2021 13:39:58 06/11/19 23 06/10/2022 MAMMO , scree concepción, digit al, bilat eral No observ ation record ed. [address] [facility], [place], [address], 06/13/2022 10:11:05 06/14/19 23 06/10/2022 bone densi ty No observ ation record ed. [address], [place], [address], 06/14/2022 10:06:46 08/04/19 23 08/03/2022 XR, chest No observ ation record ed. [facility] [address] [facility], [place], [address], 08/04/2022 13:14:50 11/09/19 24 11/08/2023 MAMMO , scree concepción, digit al, bilat eral No observ ation record ed. [address], [place], [address], 11/09/2023 09:17:19 06/20/19 25 06/19/2024 US, fantasma sheikh No observ ation record ed. [email or web address] [address], [place], [address], 06/19/2024 14:26:27 Result Notes None recorded. Problems Name Problem SNOMED Code Status Onset Date Resolution Date Notes Provider Name and Address Organization Details Recorded Time Cyst of ovary 64523084 Active 2018 MARILY Oreilly, MD - [facility] 9 11:54:10 Diverticulitis 306351665 Active 2018 MARILY Oreilly, MD - [facility] 9 11:54:16 History of hypertension 773217215 Active MARILY Aden, MD - [facility] 6 15:37:22 Folliculitis 32715520 Active MARILY Aden, MD - [facility] 6 15:37:22 Upper respiratory infection 63267550 Active Whitney Finnegan PA-C Attn: Santana al,[address] [facility], [place], [address], [facility] - [facility] 6 15:48:58 Problem Notes None recorded. Procedures Surgical History Date Name Laterality Status Provider Name and Address Organization Details Recorded Time 0 Date of Last Pap Smear completed Fatimah Delvalle MA [facility] 04/13/2020 17:00:21 9 partial resection of colon completed Charlotte Lu MA MD - [facility] 10/11/2021 11:52:44 Caesarean Section completed Aida Schumacher MA MD - [facility] 04/02/2015 13:51:17 Imaging Results None [...] saturation in Arterial blood by Pulse oximetry Heart rate Respiratory rate Systolic blood pressure Diastolic blood pressure Provider Name and Address Organization Details Last Updated DateTime 5 162.56 cm 41.4 kg/m2 547782. 48 g 97 % 97 % 90 /min 16 /min 122 mm[Hg] 82 mm[Hg] Lindsey Jo MA [place] - [facility] 5 14:23:38 Date Recorded Body height Body mass index (BMI) Body weight Oxygen saturation Oxygen saturation in Arterial blood by Pulse oximetry Systolic blood pressure Diastolic blood pressure Provider Name and Address Organization Details Last Updated DateTime 5 162.56 cm 41.4 kg/m2 412500. 76 g 96 % 96 % 126 mm[Hg] 82 mm[Hg] Belinda Gillette MA [place] - [facility] 5 16:51:48 Date Recorded Body weight Body temperature Oxygen saturation Oxygen saturation in Arterial blood by Pulse oximetry Heart rate Systolic blood pressure Diastolic blood pressure Provider Name and Address Organization Details Last Updated DateTime 2 940064. 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 None Information not available 02/25/2021 Mental Status Question Answer Note LastModified by Organization D etails LastModified Time Do you feel stressed (tense, restless, nervous, or anxious, or unable to sleep at night)? [id number] Information not available 10/11/2021 Family History Relationship Description Onset Age of this Age Resolved Age Notes LastModified by Organization Details LastModified Time Mother History of hypertension [email or web address] Not available 0 10/15/2015 15:37:23 Medical History Condition Response Coronary Artery Disease N Other N High Blood Pressure N Atrial Fibrillation N Thyroid Problems N Kidney or Bladder Problems N GI Problems N Depression N COPD N Blood Clots N Skin Problems N Eating Disorder N Anemia N Heart Attack (NV) N Anxiety Disorder N Diabetes N Muscle, Joint, or Bone Problems N Seizures/Epilepsy N Acid Reflux (GERD) N Cancer N Stroke N Asthma N Allergies N ADHD N Substance Abuse N High Cholesterol Y Hepatitis N Liver Disease N Schizophrenia N Headaches N Heart Failure N Osteoporosis N Gynecological History Statement/Question Response Date of Last Pap Smear 11/14/2019 Date of LMP Obstetrics History GPAL:G 0 P 0 0 0 0 Immunizations Vaccine Type Date Status Note Provider Nam e and Address Organization Details Recorded Time Hep B, adult 6 completed Not Available [facility] 03/02/2019 02:30:47 Hep B, adult 6 completed Not Available [facility] 03/02/2019 02:30:47 influenza, unspecified formulation 9 completed Capri Vu MA [facility] 01/01/2019 14:06:27 Hep B, adult 6 completed Not Available [facility] 03/02/2019 02:30:47 Tdap 0 completed Not Available [facility] 07/19/2024 16:44:32 Influenza, split virus, quadrivalent, preservative 8 completed Not Available [facility] 03/02/2019 02:49:14 Past Encounters Encounter ID Performer Location Encounter Start Date Encounter Closed Date Diagnosis/Indication Diagnosis SNOMED-CT Code Diagnosis ICD10 Code Diagnosis Note [id number] Naseem Barlow MD [facility] [address] [place] [address] 04/02/2015 13:35:12 04/02/2015 14:50:31 Adult health examination 898109703 Z00.00 [id number] LUTHER Sexton [address] [place] [address] 05/01/2015 14:27:03 05/01/2015 15:09:42 Folliculitis 41879426 L73.9 [id number] LUTHER Sexton [address] [place] [address] 10/01/2015 14:23:12 10/01/2015 16:16:35 Folliculitis 19494896 L73.9 [id number] Whitney Finnegan PA-C [facility] [address] [place] [address] 10/15/2015 14:53:56 10/15/2015 15:58:36 Upper respiratory infection 81163328 J06.9 [id number] Naseem Barlow MD [facility] [address] [place] [address] 10/10/2017 10:33:38 10/10/2017 11:11:58 Carpal tunnel syndrome 88791322 G56.02 [id number] Naseem Barlow MD [facility] [address] [place] [address] 10/18/2017 15:10:30 10/18/2017 16:13:45 Hyperlipidemia 44294680 E78.01 [id number] Whitney Finnegan PA-C [facility] [address] [place] [address] 12/13/2017 13:58:46 12/13/2017 14:22:16 Carpal tunnel syndrome 66167506 G56.02 Administra tion of influenza vaccine 24723295 Z23 [id number] Whitney Finnegan PA-C [facility] [address] [place] [address] 03/21/2018 14:55:05 03/21/2018 16:09:34 Tobacco dependence syndrome 49247894 F17.533 [id number] Whitney Finnegan PA-C [facility] [address] [place] [address] 04/04/2018 13:55:09 04/04/2018 14:59:49 Generalized anxiety disorder 26152988 F41.1 [id number] Whitney Finnegan PA-C [facility] [address] [place] [address] 06/27/2018 14:22:14 06/27/2018 15:24:12 Rib pain 666441565 R07.81 Persistent cough 7590136 02 R05 [facility] [address] Z30.40 [id number] Whitney Finnegan PA-C [facility] [address] [place] [address] 07/12/2018 10:55:47 07/12/2018 11:44:52 Rib pain 810800484 R07.81 [id number] Whitney Finnegan PA-C [facility] [address] [place] [address] 12/11/2018 11:37:38 12/11/2018 12:41:07 Diverticulitis 184220132 K57.92 [id number] Whitney Finnegan PA-C [facility] [address] [place] [address] 12/31/2018 11:08:48 01/01/2019 09:00:07 Diverticulitis of colon with perforation 01682779 K57.20 [id number] Whitney Finnegan PA-C [facility] [address] [place] [address] 01/01/2019 13:59:42 01/01/2019 16:26:35 Diverticulitis 980242313 K57.92 Upper resp iratory infection 22842716 J00 [id number] Whitney Finnegan PA-C [facility] [address] [place] [address] 02/19/2019 11:35:33 02/19/2019 12:11:46 Diverticulitis 351946990 K57.92 [id number] Whitney Finnegan PA-C [facility] [address] [place] [address] 03/18/2019 12:14:36 03/18/2019 13:09:08 [id number] [facility] [address] [place] [address] 01/28/2020 12:41:00 01/29/2020 08:33:48 Exposure to SARS-CoV-2 641169399 Z20.589 [id number] Whitney Finnegan PA-C [facility] [address] [place] [address] 04/13/2020 10:03:45 04/13/2020 17:12:10 Upper respiratory infection 95740303 J00 Suspected coronavirus infection 576015028 Z03.89 [id number] Whitney Finnegan PA-C [facility] [address] [place] [address] 02/25/2021 10:03:38 03/02/2021 09:20:25 Carpal tunnel syndrome of right wrist 6724206004 13433 G56.01 Screening for malignant neoplasm of colon 708308786 Z12.11 Mixed hyperlipidemia 267 626664 E78.2 Diverticul itis of colon 729702176 Q43.8 [id number] Whitney Finnegan PA-C [facility] [address] [place] [address] 10/11/2021 11:36:54 10/12/2021 09:44:26 Allergic reaction to wasp sting 660160110 T63.461A Dysplastic nevus of skin 789205369 D22.9 Body mass index 30+ - obesity 775179094 Z68.37 [id number] Whitney Finnegan PA-C [facility] [address] [place] [address] 01/25/2022 12:06:30 01/25/2022 12:47:08 COVID-19 878847159 U07.1 [id number] Naseem Barlow MD [facility] [address] [place] [address] 06/04/2024 14:16:41 06/07/2024 09:35:09 Right inguinal pain 6039944811 9626165 R10.31 Body mass index 40+ - severely obese 304174583 Z68.41 [id number] Naseem Barlow MD [facility] [address] [place] [address] 07/19/2024 16:43:50 07/19/2024 17:01:44 Right upper quadrant pain 924839272 R10.11 Obese class III 16549459 5 E66.813 Health Concerns Section Related Observation LastModified by Organization Detai ls LastModified Time None Recorded Concern Status LastModified by Organization Details LastModified Time None Recorded Advance Directives Directive N: Payers Encounter Date Sequence Insurance Name Policy Number Policy Lawler Covered Member ID Lawler Member ID Guarantor Name 02/25/2021 1 [facility] (MEDICAID HMO) [id number] Job Orban [id number] Job Orban 10/11/2021 1 [facility] (MEDICAID HMO) [id number] Job Orban [id number] Job Orban 01/25/2022 1 [facility] (MEDICAID HMO) [id number] Job Orban [id number] Job Orban 06/04/2024 1 [facility] TOPOGRAPHICAL SURVEYOR FUND - OPEN ACCESS III (PPO) [id number] Job Orban [id number] Job Orban 07/19/2024 1 [facility] TOPOGRAPHICAL SURVEYOR FUND - OPEN ACCESS III (PPO) [id number] Job Orban [id number] Job Orban Notes Date Note Type Note Provider Name and Address Organization Details Recorded Time 02/25/2021 text/html Patient presents for follow up. States she was scheduled to have colonoscopy, but was cancelled due to COVID. Has hx of colon perforation and had surgical correction. She notes she has had recent abdominal pain with defecation, but at no other times. She is interested in rescheduling her colonoscopy at [facility]...Also, she endorses numbness in the right hand that will wake her up in the middle of the night. Had nerve conduction and EMG performed 3 years ago on left wrist, showing carpal tunnel syndrome. Hasn't taken any medications for the hand pain. Whitney Finnegan PA-C Attn: Accounting, [address] [place], [address], [facility] 02/25/2021 14:51:51 10/11/2021 text/html got stung by something in middle of back...hot and painful...also has growing moles on forehead and scalp... Whitney Finnegan PA-C Attn: Accounting, [address] [place], [address], [facility] 10/11/2021 12:16:56 06/04/2024 text/html last year was drinking and thinks she may have hurt herself and now has pain in rt proximal inner thigh...positional. ..also her mom 9 months ago with liver and PAD complications Whitney Finnegan PA-C Attn: Accounting, [address] [place], [address], [facility] 06/04/2024 14:39:34 07/19/2024 text/html hx of diverticulitis...no w having pain started in back now wrapping around to rt side..may be some correlation with food.. Whitney Finnegan PA-C Attn: Accounting,[address] [facility], [place], [address], [facility] 07/19/2024 17:01:41 OBGyn Episode No OBEpisode recorded.
[2024-07-19 16:36] LABS: Hematocrit 46.8 % (35.0-49.0); Mean Corpuscular HGB Conc 32.1 g/dL (32-36); Mean Corpuscular Hemoglobin 30.7 pg (27.0-31.0); Mean Corpuscular Volume 95.9 fL (78.0-102.0); Mean Platelet Volume 9.7 fl (9.2-11.8); Platelet Count Result 364 K/mm3 (150-420); Red Blood Count 4.88 M/mm3 (4.20-5.40); Red Cell Distribution Width 12.7 % (11.6-14.4)
[2024-07-19 17:02] LABS: Alanine Aminotransferase 24 U/L (6-35); Albumin Level 4.3 g/dL (3.5-5.1); Alkaline Phosphatase 62 U/L (38-126); Amylase 49 U/L (30-110); Anion Gap 4 mmol/L (4-12); Aspartate Amino Transferase 24 U/L (14-36); Bilirubin,Total 0.8 mg/dL (0.2-1.3); Blood Urea Nitrogen 17 mg/dL (7-17); Calcium 9.2 mg/dL (8.4-10.2); Carbon Dioxide 30 mmol/L (22-30); Chloride 106 mmol/L (98-107); Estimated Glomerular Filt Rate > 60; Glucose 120 mg/dL (65-110); Lipase 64 U/L (23-300); Osmolality Calculated 292 mOsm/kg (285-295); Potassium 4.7 mmol/L (3.4-5.0); Sodium 140 mmol/L (137-145); Total Protein 6.9 g/dL (6.3-8.2)
== END 2024-07-19 16:23 | disposition home or self-care (01) ==
PROVIDERS: PCP Physician Assistant; Visit Provider Physician Assistant
DX: R10.11 Right upper quadrant pain (principal)
CPT/HCPCS: 36415; 80053; 82150; 83690; 85027

== ENCOUNTER 2024-11-13 09:44 | Outpatient (CLI) | payer OTHER, MEDICAID, SELFPAY ==
--- OUTSIDE RECORDS SUMMARY | 2011-06-13 19:00 | XMS_ITS | Continuity of Care Document ---
Author Organization [facility] Address [address] [place] [address] Phone Care Team Providers Care Capacity Manager Name Role Phone Unavailable Unavailable Unavailable Advance Directives Directive Yes / No Effective Date File Name No Information Encounters Encounter Description Practice Location Reason(s) For Visit Diagnoses Date Provider Providers Copied on Encounter [facility], [address], [place], [place], [id number], tel:[phone] [facility] No Information No Information Referring Provider: KULWINDER Thomas, [address], [place], [address]. tel:[phone] Family History Family Member Type Diagnosis Age At Onset No Information Payers Payer name Insurance type Covered constitution party ID Authoriza tion(s) [facility] [id number] CI [id number] Social History Type Description Quantity Date Captured Comments Sex Female Smoking Status No Information Chief Complaint And Reason For Visit No Information History Of Present Illness Encounter Date Complaint History Of Prese nt Illness No Information Instructions Date Instruction Additional Infor mation No Information Assessments Type Assessment Date No Information
--- NOTE | ~2024-11-13 | MM_ITS ---
EXAMINATION: MM screening [facility] BI w [facility] HISTORY: Screening TECHNIQUE: Craniocaudal and mediolateral oblique 3-D tomosynthesis images were obtained and synthetic 2-D images were generated. CAD analysis was submitted and interpreted. COMPARISON: Comparison to multiple prior studies sequentially, with oldest reviewed study dated 03/25/2021. BREAST PARENCHYMAL COMPOSITION: Not dense: There are scattered areas of fibroglandular density. FINDINGS: There is no evidence of suspicious mass, calcification, or architectural distortion to suggest malignancy in either breast. There has been no suspicious interval change. IMPRESSION: 1. No mammographic evidence of malignancy. 2. Recommend routine screening mammography in one year. BI-RADS Category 1: Negative Reviewed, dictated and finalized at location B.
--- OUTSIDE RECORDS SUMMARY | 2024-11-13 10:21 | XMS_ITS | Clinical Summary ---
Author Organization [facility] Address [address] [place] [address] Care Team Providers Care Brand Advisor Name Role Phone Lane Finnegan Primary Care Provider [phone] Jignesh Douglass MD Unavailable Allergies No known active allergies Medications simvastatin (ZOCOR) 40 mg tabletIndicatio ns:hyperlipidem ia Take 40 mg by mouth nightly Active MEDROXYPROGESTE ENEIDA 150 mg/mL injection every 3 (three) months Last dose November12/10/2018 Active calcium acetate,phospha t bind, (PHOSLO) 667 mg tablet Take 1,334 mg by mouth daily Active Active Problems Problem Noted Date Diagnosed Date Encounter for screening colonoscopy 03/03/2021 Overview (03/03/2021): Added automatically from request for surgery [id number] Diverticulitis of large intestine with perforati on 04/22/2019 Overview (04/22/2019): Added automatically from request for surgery [id number] Ganglion cyst of finger 03/14/2019 Assessment & Plan (03/14/2019 9:05 AM FISCAL OFFICER): I favor this is a ganglion cyst. I have discussed just simply aspirating it but I also discussed the high risk of recurrence. Given its location at typically will refer to ortho hand for further evaluation. We will send that in for her. Postprocedural intraabdominal abscess 02/21/2019 Assessment & Plan (04/22/2019 9:51 AM CDT): Had history of abscess with drain placement. She saw surgery at end of Feb 2019 for f/u and was doing well overall. Assessment & Plan (02/21/2019 9:25 AM FISCAL OFFICER): Had drain removed last week and doing well. She has f/u with Dr. Douglass end of Feb for f/u. BMI 38.0-38.9,adult 02/21/2019 Adnexal cyst 12/20/2018 Class 2 obesity due to exces s calories without serious comorbidity with body mass index (BMI) of 38.0 to 38.9 in adult 12/11/2018 Perforated diverticulum of large intestine 12/11 Assessment & Plan (04/22/2019 9:58 AM CDT): History of diverticulitis with perforation and abscess formation. She was managed by surgery. They saw her recently and overall doing well. We had to wait until further healing for colonoscopy. Today, patient is doing well and no complaints. Will schedule for colonoscopy. Cigarette nicotine dependence without complicati on 12/11/2018 Diverticulitis of large inte pk with perforation and abscess without bleeding Assessment & Plan (03/14/2019 9:05 AM FISCAL OFFICER): No restrictions from a surgical standpoint. Okay for diet as tolerates. She is set to see GI in the upcoming month and they can then discuss colonoscopy to further evaluate the remaining portion of her colon. She will call us back with any further questions or concerns. Assessment & Plan (02/21/2019 9:24 AM FISCAL OFFICER): Pt was hospitalized due to diverticulitis with perforation and abscess formation. She was recently found to have abscess and had another drain placed. This was removed last week. Overall, patient is doing well. No symptoms. We discussed need to wait for full healing post surgery and drain removal in order to do colonoscopy. We will f/u about 1 month after she sees surgery to see how she is doing and setup colonoscopy. Pt verbalized understanding. Assessment & Plan (02/14/2019 11:36 AM FISCAL OFFICER): Abscessogram did not demonstrate any communication with the bowel. The abscess cavity had near completely collapsed. We left in for 1 further week given her current smoking use. The drain will be removed at bedside today. We'll see her back in 4 weeks and discuss setting up a colonoscopy. Assessment & Plan (01/23/2019 4:40 PM FISCAL OFFICER): Persistent lower abdominal pain after recent episode of the complicated diverticulitis and resection. Will get CT scan of the abdomen pelvis today plus complete blood testing. Follow-up in my office otherwise in 6 weeks. Assessment & Plan (01/08/2019 9:51 AM FISCAL OFFICER): Continue low residue diet. No heavy lifting greater than 25 lb. Continue to ambulate as tolerates. We will see the patient back in 2 weeks. She is okay to return to work if they have light duty. Assessment & Plan (12/20/2018 11:49 AM FISCAL OFFICER): The patient has been evaluated by OB for the large ovarian cyst. It is difficult to tell whether or not the symptoms are stemming from persistent diverticular disease or the cyst. I am going to send her for a CBC. If white count is elevated I will send her back to the ER for admission and IV antibiotics. I will also repeat the CT scan to see if there is any progression. If normal and as long as the pain continues to improve we will plan for outpatient colonoscopy in 4-6 weeks to ensure that there is no underlying malignancy as the cause of the perforated diverticular disease. 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 Monthly or less 06/25/2021 Q2: How many drinks containi ng alcohol do you have on a typical day when you are drinking? 1 or 2 06/25/2021 Q3: How often do you have si x or more drinks on one occasion? Less than monthly 06/25/2021 PHQ-2 Answer Date Recorded PHQ-2 Score 0 12/11/2018 Comments No Sex and Gender Information Value Date Recorded Sex Assigned at Not on file Legal Sex Female 7:48 PM FISCAL OFFICER Gender Identity Female 10/06/2023 5:17 PM CDT Sexual Orientation Not on file Obstetrics History Para Term AB IAB SAB Ectopic Multiple Livin g Live Births 3 2 2 0 1 2 Date Outcome GA Total Labor Labor/2nd/3rd Weight Sex Type Anes PTL Lisa A1 A5 Name Clin Term Term AB Last Filed Vital Signs Vital Sign Reading Time Taken Comments Blood Pressure 121/84 06/25/2021 11:00 AM CDT Pulse 89 06/25/2021 11:00 AM CDT Temperature 36.7 C (98 F) 06/25/2021 11:00 AM CDT Respiratory Rate 20 06/25/2021 11:00 AM CDT Oxygen Saturation 100% 06/25/2021 11:00 AM CDT Inhaled Oxygen Concentration - - Weight 104.3 kg (230 lb) 06/25/2021 9:01 AM CDT Height 162.6 cm (5' 4) 06/25/2021 9:01 AM CDT Body Mass Index 39.48 06/25/2021 9:01 AM CDT Plan of Treatment Health Maintenance Due Date Last Done Comments Breast Cancer Screening-Mammogram 1980 Cervical Cancer Screening 1980 Hepatitis C Screening 1980 DTaP/Tdap/Td Vaccine (1 - Tdap) 06/25/1991 Varicella Vaccines (1 of 2 - 13+ 2-dose series) 1993 Regular Well Visit/Exam 18-64 1998 Pneumococcal vaccine <65 (1 of 2 - PCV) 06/25/1999 HPV Vaccines (1 - 3-dose SCDM series) 06/25/2007 Depression Screening 01/22/2020 01/21/2019, 12/20/2018, 12/11/2018 Influenza Vaccine (#1) 2024 11/13/2018, 2017 Hepatitis B Screening Completed 10/01/2015 , 05/01/2015, 04/02/2015 Insurance [facility] [employer] Advance Directives For more information, please contact: [phone] * Full Code (Latest Code Status on File) Date Activated Date Inactivated Comments 06/25/2021 8:45 AM 06/25/2021 3:28 PM * Full Code Date Activated Date Inactivated Comments 06/25/2021 8:45 AM 06/25/2021 8:45 AM * Full Code Date Activated Date Inactivated Comments 01/21/2019 11:43 AM 01/29/2019 6:34 PM * Full Code Date Activated Date Inactivated Comments 12/20/2018 10:03 PM 12/27/2018 4:47 PM * Full Code Date Activated Date Inactivated Comments 12/20/2018 7:56 PM 12/20/2018 10:03 PM Care Teams Brand Advisor Relationship Specialty Start Date End Date Lane Finnegan PA [address] [place] [address] PCP - General 12/11/18 Jignesh Douglass MD [address] [place] [address] Consulting Physician General Surgery 12/14/18
--- OUTSIDE RECORDS SUMMARY | 2024-11-13 10:21 | XMS_ITS | Clinical Summary ---
Author Organization [facility] Address [facility] [place] [address] Care Team Providers Care Branch Lending Manager Name Role Phone Lane Finnegan Primary Care Provider Social History Tobacco Use Types Packs/Day Years Used Date Smoking Tobacco: Never Assessed Comments Unknown Sex and Gender Information Value Date Recorded Sex Assigned at Not on file Legal Sex Female 9:26 AM TABLE WORKER PACKAGER Gender Identity Not on file Sexual Orientation Not on file Last Filed Vital Signs Vital Sign Reading Time Taken Comments Blood Pressure 108/70 03/24/2014 11:30 AM TABLE WORKER PACKAGER Pulse 100 03/24/2014 11:30 AM TABLE WORKER PACKAGER Temperature - - Respiratory Rate - - Oxygen Saturation - - Inhaled Oxygen Concentration - - Weight 102.5 kg (226 lb) 03/24/2014 11:30 AM TABLE WORKER PACKAGER Height 162.6 cm (5' 4) 03/24/2014 11:30 AM TABLE WORKER PACKAGER Body Mass Index 38.79 03/24/2014 11:30 AM TABLE WORKER PACKAGER Plan of Treatment Health Maintenance Due Date Last Done Comments Cervical Cancer Screening Pa p Smear (Age 30 to 64) Every 3 Years 1980 Annual Physical 06/25/1983 Hepatitis C 1998 DTaP, Tdap and Td Vaccines ( 1 - Tdap) 06/25/1999 Hepatitis B Vaccines (1 of 3 - 19+ 3-dose series) 06/25/1999 HPV Vaccines (1 - 3-dose SCD M series) 06/25/2007 Cervical Cancer Screening Pa p with HPV Testing (Age 30 to 64) Every 5 Years 2010 Cervical Cancer Screening with HPV 2010 Mammogram Screening 2020 COVID-19 Vaccine (2023-2 5 season) 2024 Meningococcal B Vaccine Aged Out No l onger eligible based on patient's age to complete this topic Meningococcal Vaccine Aged Out No arnel be eligible based on patient's age to complete this topic Pneumococcal Vaccine: Pediat rics (0 to 5 Years) and At-Risk Patients (6 to 49 Years) Aged Out No longer eligible b ased on patient's age to complete this topic RSV Immunizations Under 20 Months Aged Out No longer eligible based on patient's age to complete this topic Insurance [employer] Care Teams Branch Lending Manager Relationship Specialty Start Date End Date Lane Finnegan PA PCP - General PHYSICIAN COTTON CANDY MAKER 01/23/19
--- OUTSIDE RECORDS SUMMARY | 2024-11-13 10:24 | XMS_ITS | Clinical Summary ---
Author Organization [facility] Address [address] [place] [id number] Phone Care Team Providers Care Disbursing Officer Name Role Phone Unavailable Primary Care Provider [...] on file Legal Sex Female 6:08 AM CANNON FIRE DIRECTION SPECIALIST Gender Identity Not on file Sexual Orientation Not on file Occupation Industry Job Start Date Job End Date Not on file Not on file Not on file Not on file Plan of Treatment Health Maintenance Due Date Last Done Comments DTAP/TDAP/TD VACCINES (1 - Tdap) 06/25/1999 HEPATITIS B VACCINES (1 of 3 - 19+ 3-dose series) 06/13 HPV/Cotest (21-29) 2001 HPV VACCINES (1 - 3-dose SCDM series) 06/25/2007 CERVICAL CANCER SCREENING 2010 HPV/Cotest (30-65) 2010 PAP SMEAR 2010 BREAST CANCER SCREENING 2020 INFLUENZA VACCINE (#1) 2024 RSV VACCINE (60+ or ) (1 - 1-dose 75+ series) 06/25/[id number] [id number] [facility] [employer] PPO [id number]
== END 2024-11-13 09:45 | disposition home or self-care (01) ==
LOC: ANHFOHIMG 09:46
PROVIDERS: PCP Physician Assistant; Visit Provider Obstetrics & Gynecology Gynecology
DX: Z12.31 Encounter for screening mammogram for malignant neoplasm of breast (principal)
CPT/HCPCS: 77063; 77067